=== PATIENT | male | born 1970 | race African-American/Black ===

== ENCOUNTER 2017-09-25 10:03 | Emergency (ER) | payer MEDICAID ==
[~2017-09-25] VITALS: Ht 193 cm; Wt 100.0 kg
[2017-09-25 10:06] VITALS: BP 120/74
[2017-09-25] MEDS ORDERED: LIDOCAINE-MPF 1%, 5ML ONE (10:56)
[2017-09-25] MEDS ORDERED: LIDOCAINE-MPF 1%, 5ML INFIL ONE (11:00)
== END 2017-09-25 11:21 | disposition home or self-care (01) ==
LOC: ED 11:15
DX: L02.31 Cutaneous abscess of buttock (principal)
CPT/HCPCS: 10060; 99283

== ENCOUNTER 2017-09-27 09:36 | Emergency (ER) | payer MEDICAID ==
[~2017-09-27] VITALS: Ht 193 cm; Wt 102.1 kg
[2017-09-27 09:38] VITALS: BP 130/80
[2017-09-27] MEDS ORDERED: BACITRACIN ZINC OINT 500U/GM, 0.9 GM ONE (11:16)
== END 2017-09-27 11:11 | disposition home or self-care (01) ==
LOC: ED 11:06
DX: L02.31 Cutaneous abscess of buttock (principal); F17.200 Nicotine dependence, unspecified, uncomplicated
CPT/HCPCS: 99283

== ENCOUNTER 2017-09-29 08:16 | Emergency (ER) | payer MEDICAID ==
[~2017-09-29] VITALS: Ht 193 cm; Wt 101.3 kg
[2017-09-29 08:19] VITALS: BP 107/71
[2017-09-29] MEDS ORDERED: BACITRACIN ZINC OINT 500U/GM, 0.9 GM ONE (10:14)
== END 2017-09-29 10:29 | disposition home or self-care (01) ==
LOC: ED 10:23
DX: L02.31 Cutaneous abscess of buttock (principal); F17.200 Nicotine dependence, unspecified, uncomplicated
CPT/HCPCS: 99283

== ENCOUNTER 2017-10-02 09:03 | Emergency (ER) | payer MEDICAID ==
[~2017-10-02] VITALS: Ht 193 cm; Wt 101.3 kg
[2017-10-02 09:03] VITALS: BP 115/78
== END 2017-10-02 10:29 | disposition home or self-care (01) ==
LOC: ED 09:19
DX: L02.416 Cutaneous abscess of left lower limb (principal)
CPT/HCPCS: 99281

== ENCOUNTER 2018-04-19 12:10 | Emergency (ER) | payer MEDICAID ==
[~2018-04-19] VITALS: Ht 193 cm; Wt 100.0 kg
[2018-04-19 12:20] VITALS: BP 122/79
[2018-04-19] MEDS ORDERED: MECLIZINE CHEWABLE 25 MG TAB ONE (12:55)
[2018-04-19] MEDS ORDERED: MECLIZINE CHEWABLE 25 MG TAB PO ONE (13:00)
[2018-04-19 13:16] LABS: BASOPHILS # (AUTO) 0.01 x10^3/uL (0-0.1); BASOPHILS % (AUTO) 0 % (0-1); EOSINOPHILS # (AUTO) 0.02 x10^3/uL (0-0.4); EOSINOPHILS % (AUTO) 0 % (1-7); LYMPHOCYTES # (AUTO) 0.85 x10^3/uL (1-3.4); LYMPHOCYTES % (AUTO) 11 % (22-44); MD NO; MEAN CORPUSCULAR HEMOGLOBIN 31.2 pg (27.5-34.5); MEAN CORPUSCULAR HGB CONC 33.1 g/dL (33.2-36.2); MEAN CORPUSCULAR VOLUME 94.3 fL (81-97); MEAN PLATELET VOLUME 9.9 fL (7.4-10.4); MONOCYTES # (AUTO) 0.19 x10^3/uL (0.2-0.8); MONOCYTES % (AUTO) 3 % (2-9); NEUTROPHILS # (AUTO) 6.42 x10^3/uL (1.8-6.8); NEUTROPHILS % (AUTO) 86 % (42-75); PLATELET COUNT 177 x10^3/uL (130-400); RED BLOOD COUNT 4.86 x10^6/uL (4.38-5.82); RED CELL DISTRIBUTION WIDTH 14.2 % (9.4-14.8)
[2018-04-19 13:29] LABS: ALANINE AMINOTRANSFERASE 50 U/L (12-78); ALBUMIN 4.2 g/dL (3.4-5.0); ANION GAP 6 mmol/L (5-15); CALCIUM 9.2 mg/dL (8.5-10.1); CHLORIDE 107 mmol/L (98-107); CREATININE 0.93 mg/dL (0.7-1.3)
[2018-04-19 13:31] LABS: ALKALINE PHOSPHATASE 62 U/L (45-117); BILIRUBIN,TOTAL 0.5 mg/dL (0.2-1.0); TOTAL PROTEIN 7.7 g/dL (6.4-8.2)
== END 2018-04-19 14:18 | disposition home or self-care (01) ==
LOC: ED 14:15
DX: H81.10 Benign paroxysmal vertigo, unspecified ear (principal); Z87.891 Personal history of nicotine dependence
CPT/HCPCS: 36415; 80053; 85025; 93005; 99284

== ENCOUNTER 2019-02-10 09:40 | Inpatient (IN) | payer MEDICARE, MEDICAID ==
[~2019-02-10] VITALS: Ht 193 cm; Wt 90.8 kg
[~2019-02-10 09:40] MED LIST: ATOR40TA78 PO; BACITRACIN 50,000 UNIT ONE; BUPIVACAINE/PF 0.5% ONE; EPINEPHRINE 1 MG/ML, 1ML ONE; KRIL1CAP7 PO; OMEG1CAP34 PO; THROMBIN 5,000 UNIT VIAL TP ONE; TRANEXAMIC ACID 100 MG/ML, 10ML ONE; VANCOMYCIN 1,000 MG ONE
[2019-02-10] MEDS ORDERED: VANCOMYCIN PMX 1GM/200ML 200 ML IV ONE (10:00)
[2019-02-10] MEDS ORDERED: LACTATED RINGERS 1,000 ML IV SCH (10:29)
[2019-02-10] MEDS ORDERED: MIDAZOLAM 1 MG/ML, 2ML ONE (12:30)
[2019-02-10] MEDS ORDERED: FENTANYL PF 250 MCG/5ML ONE ×4 (12:30→16:27)
[2019-02-10] MEDS ORDERED: PROPOFOL 50 ML ONE ×3 (12:31→17:16)
[2019-02-10] MEDS ORDERED: KETOROLAC 30 MG/1 ML ONE (13:16)
[2019-02-10] MEDS ORDERED: ONDANSETRON 2MG/ML, 2ML ONE ×3 (13:16→22:34)
[2019-02-10] MEDS ORDERED: DEXAMETHASONE 4 MG/ML, 1ML ONE ×2 (13:38→13:47)
[2019-02-10] MEDS ORDERED: CEFAZOLIN 1,000 MG ONE ×2 (13:40)
[2019-02-10] MEDS ORDERED: SUCCINYLCHOLINE 20 MG/ML, 10ML ONE (13:47)
[2019-02-10] MEDS ORDERED: ROCURONIUM 10MG/ML,5ML ONE (13:47)
[2019-02-10] MEDS ORDERED: BACITRACIN 50,000 UNIT ONE ×2 (15:54→18:24)
[2019-02-10] MEDS ORDERED: FENTANYL PF 100 MCG/2ML ONE ×2 (19:06→20:32)
[2019-02-10] MEDS ORDERED: LABETALOL 5MG/ML, 20ML IV PRN (20:30)
[2019-02-10] MEDS ORDERED: ACETAMINOPHEN 325 MG TABLET PO PRN (20:30)
[2019-02-10] MEDS ORDERED: ALBUTEROL SULFATE 2.5 MG/3 ML NPPB PRN (20:30)
[2019-02-10] MEDS ORDERED: PROMETHAZINE 12.5 MG SUPP PR PRN (20:30)
[2019-02-10] MEDS ORDERED: hydrALAzine 20 MG/ML, 1ML IV PRN (20:30)
[2019-02-10] MEDS ORDERED: EPHEDRINE 50 MG/ML, 1ML IVPush PRN (20:30)
[2019-02-10] MEDS ORDERED: ONDANSETRON 2MG/ML, 2ML IV PRN ×2 (20:30→22:30)
[2019-02-10] MEDS ORDERED: DIAZEPAM 5 MG/ML, 2ML IVPush PRN (20:30)
[2019-02-10] MEDS ORDERED: HALOPERIDOL 5 MG/ML IV PRN (20:30)
[2019-02-10] MEDS ORDERED: MIDAZOLAM 1 MG/ML, 2ML IV PRN (20:30)
[2019-02-10] MEDS ORDERED: ONDANSETRON ODT 8 MG PO PRN (20:30)
[2019-02-10] MEDS ORDERED: OXYcodone 5 MG/5 ML ORAL.SOL UDC PO PRN (20:30)
[2019-02-10] MEDS ORDERED: MEPERIDINE/PF 25MG/ML,1ML IVPush PRN (20:30)
[2019-02-10] MEDS ORDERED: PROMETHAZINE 25 MG/ML, 1ML IV PRN (20:30)
[2019-02-10] MEDS ORDERED: HYDROmorphone 2 MG/ML, 1ML ONE (20:32)
[2019-02-10] MEDS: FENTANYL PF 100 MCG/2ML IV PRN ×2 (20:33→20:58)
[2019-02-10] MEDS: HYDROmorphone 2 MG/ML, 1ML IVPush PRN ×2 (20:45→21:02)
[2019-02-10] MEDS ORDERED: PHARMACY MAY ADJ FOR RENAL FX MC PRN (22:00)
[2019-02-10] MEDS ORDERED: DIPHENHYDRAMINE 50 MG CAPSULE PO PRN (22:30)
[2019-02-10] MEDS ORDERED: LORazepam 1MG TABLET PO PRN (22:30)
[2019-02-10] MEDS ORDERED: PROMETHAZINE 25 MG/ML, 1ML IM PRN (22:30)
[2019-02-10] MEDS ORDERED: ACETAMINOPHEN 650 MG SUPP PR PRN ×2 (22:30→23:00)
[2019-02-10] MEDS ORDERED: DIPHENHYDRAMINE 50 MG/ML, 1ML IVPush PRN (22:30)
[2019-02-10] MEDS ORDERED: KETOROLAC 30 MG/1 ML IV ONE (22:30)
[2019-02-10] MEDS ORDERED: DIPHENHYDRAMINE 50 MG/ML, 1ML IM PRN (22:30)
[2019-02-10] MEDS ORDERED: [UNRECOGNIZED DRUG - REMARK] MC SCH (23:00)
[2019-02-10 23:03] VITALS: BP 148/87
[2019-02-10] MEDS: D5%-0.9% NACL+KCL 20MEQ 1,000 ML IV SCH (23:10)
[2019-02-10] MEDS: CEFAZOLIN PMX 2GM/50ML 50 ML IVPB SCH (23:10)
[2019-02-11] MEDS ORDERED: METHOCARBAMOL 1,000 MG in DEXTROSE 5% 100 ML IV ONE (02:30)
[2019-02-11 03:22] VITALS: BP 121/78
[2019-02-11 05:35] LABS: BASOPHILS # (AUTO) 0.02 x10^3/uL (0-0.1); BASOPHILS % (AUTO) 0 % (0-1); EOSINOPHILS % (AUTO) 0 % (1-7); LYMPHOCYTES # (AUTO) 0.74 x10^3/uL (1-3.4); LYMPHOCYTES % (AUTO) 7 % (22-44); MD NO; MEAN CORPUSCULAR HEMOGLOBIN 32.2 pg (27.5-34.5); MEAN CORPUSCULAR VOLUME 97.6 fL (81-97); MEAN PLATELET VOLUME 10.2 fL (7.4-10.4); MONOCYTES # (AUTO) 0.57 x10^3/uL (0.2-0.8); MONOCYTES % (AUTO) 6 % (2-9); NEUTROPHILS # (AUTO) 8.98 x10^3/uL (1.8-6.8); NEUTROPHILS % (AUTO) 87 % (42-75); PLATELET COUNT 142 x10^3/uL (130-400); RED BLOOD COUNT 3.86 x10^6/uL (4.38-5.82); RED CELL DISTRIBUTION WIDTH 14.2 % (9.4-14.8)
[2019-02-11] MEDS ORDERED: KETOROLAC 30 MG/1 ML IV PRN (06:00)
[2019-02-11] MEDS: CEFAZOLIN PMX 2GM/50ML 50 ML IVPB SCH (06:18)
[2019-02-11] MEDS ORDERED: morphine SULFATE 10 MG/ML, 1ML IVPush PRN (08:00)
[2019-02-11 08:16] VITALS: BP 103/64
[2019-02-11] MEDS: SENNA/DOCUSATE TABLET PO SCH (09:46)
[2019-02-11] MEDS: OMEGA-3/FISH OIL CAPSULE PO SCH (09:46)
[2019-02-11 13:01] VITALS: BP 142/92
[2019-02-11] MEDS: METHOCARBAMOL 750 MG in DEXTROSE 5% 100 ML IV SCH ×2 (13:43→22:11)
[2019-02-11] MEDS: D5%-0.9% NACL+KCL 20MEQ 1,000 ML IV SCH (13:43)
[2019-02-11 18:41] VITALS: BP 122/71
[2019-02-11] MEDS: ZOLPIDEM 5MG TABLET PO PRN (20:24)
[2019-02-11] MEDS: DEXAMETHASONE 4 MG/ML, 1ML IV PRN (20:26)
[2019-02-11] MEDS: ATORVASTATIN 40 MG TABLET PO SCH (20:26)
[2019-02-12 02:22] VITALS: BP 100/64
[2019-02-12 05:24] LABS: BASOPHILS # (AUTO) 0.03 x10^3/uL (0-0.1); BASOPHILS % (AUTO) 0 % (0-1); EOSINOPHILS % (AUTO) 0 % (1-7); LYMPHOCYTES # (AUTO) 0.62 x10^3/uL (1-3.4); LYMPHOCYTES % (AUTO) 6 % (22-44); MD NO; MEAN CORPUSCULAR HEMOGLOBIN 32.6 pg (27.5-34.5); MEAN CORPUSCULAR HGB CONC 33.4 g/dL (33.2-36.2); MEAN CORPUSCULAR VOLUME 97.6 fL (81-97); MEAN PLATELET VOLUME 9.6 fL (7.4-10.4); MONOCYTES # (AUTO) 0.56 x10^3/uL (0.2-0.8); MONOCYTES % (AUTO) 5 % (2-9); NEUTROPHILS # (AUTO) 9.32 x10^3/uL (1.8-6.8); NEUTROPHILS % (AUTO) 89 % (42-75); PLATELET COUNT 131 x10^3/uL (130-400); RED BLOOD COUNT 3.58 x10^6/uL (4.38-5.82); RED CELL DISTRIBUTION WIDTH 14.5 % (9.4-14.8)
[2019-02-12] MEDS: METHOCARBAMOL 750 MG in DEXTROSE 5% 100 ML IV SCH (05:55)
[2019-02-12] MEDS: SENNA/DOCUSATE TABLET PO SCH (08:00)
[2019-02-12] MEDS: OMEGA-3/FISH OIL CAPSULE PO SCH (08:00)
[2019-02-12 08:38] VITALS: BP 130/78
[2019-02-12] MEDS: D5%-0.9% NACL+KCL 20MEQ 1,000 ML IV SCH ×3 (10:45→20:00)
[2019-02-12] MEDS: OXYcodone IR 5MG TABLET PO PRN ×3 (12:40→21:26)
[2019-02-12] MEDS: DEXAMETHASONE 4 MG/ML, 1ML IV PRN (12:41)
[2019-02-12 13:47] VITALS: BP 115/62
[2019-02-12] MEDS: MAGNESIUM HYDROXIDE 8%, 30ML UDC PO PRN (17:46)
[2019-02-12 18:39] VITALS: BP 166/81
[2019-02-12] MEDS: ATORVASTATIN 40 MG TABLET PO SCH (21:00)
[2019-02-12] MEDS: ZOLPIDEM 5MG TABLET PO PRN (21:26)
[2019-02-13 00:06] VITALS: BP 108/65
[2019-02-13] MEDS: OXYcodone IR 5MG TABLET PO PRN ×4 (04:45→15:09)
[2019-02-13 04:57] LABS: BASOPHILS # (AUTO) 0.05 x10^3/uL (0-0.1); BASOPHILS % (AUTO) 0 % (0-1); EOSINOPHILS % (AUTO) 0 % (1-7); LYMPHOCYTES # (AUTO) 1.28 x10^3/uL (1-3.4); LYMPHOCYTES % (AUTO) 12 % (22-44); MD NO; MEAN CORPUSCULAR HEMOGLOBIN 32.4 pg (27.5-34.5); MEAN CORPUSCULAR HGB CONC 33.3 g/dL (33.2-36.2); MEAN CORPUSCULAR VOLUME 97.1 fL (81-97); MEAN PLATELET VOLUME 9.5 fL (7.4-10.4); MONOCYTES # (AUTO) 0.74 x10^3/uL (0.2-0.8); MONOCYTES % (AUTO) 7 % (2-9); NEUTROPHILS # (AUTO) 8.91 x10^3/uL (1.8-6.8); NEUTROPHILS % (AUTO) 81 % (42-75); PLATELET COUNT 123 x10^3/uL (130-400); RED CELL DISTRIBUTION WIDTH 14.5 % (9.4-14.8)
[2019-02-13] MEDS: D5%-0.9% NACL+KCL 20MEQ 1,000 ML IV SCH ×3 (06:00→21:48)
[2019-02-13 06:37] VITALS: BP 116/72
[2019-02-13] MEDS: SENNA/DOCUSATE TABLET PO SCH (07:57)
[2019-02-13] MEDS: OMEGA-3/FISH OIL CAPSULE PO SCH (07:57)
[2019-02-13] MEDS: METHOCARBAMOL 750 MG TABLET PO SCH ×2 (11:13→18:30)
[2019-02-13 12:42] VITALS: BP 140/82
[2019-02-13] MEDS: MAGNESIUM HYDROXIDE 8%, 30ML UDC PO PRN (13:33)
[2019-02-13] MEDS: BISACODYL 10 MG SUPP PR PRN (15:08)
[2019-02-13] MEDS: POLYETHYLENE GLYCOL 17 GM PACKET PO PRN (19:14)
[2019-02-13] MEDS: ACETAMINOPHEN 500 MG TABLET PO PRN (19:14)
[2019-02-13 19:22] VITALS: BP 135/77
[2019-02-13] MEDS: ATORVASTATIN 40 MG TABLET PO SCH (21:00)
[2019-02-13] MEDS: ZOLPIDEM 5MG TABLET PO PRN (21:48)
[2019-02-14] MEDS: OXYcodone IR 5MG TABLET PO PRN ×3 (00:40→14:55)
[2019-02-14 01:59] VITALS: BP 117/74
[2019-02-14] MEDS: METHOCARBAMOL 750 MG TABLET PO SCH ×3 (02:30→16:33)
[2019-02-14] MEDS: ACETAMINOPHEN 500 MG TABLET PO PRN ×2 (04:55→14:54)
[2019-02-14 05:23] LABS: MEAN CORPUSCULAR HGB CONC 33.5 g/dL (33.2-36.2); MEAN CORPUSCULAR VOLUME 95.6 fL (81-97); MEAN PLATELET VOLUME 9.2 fL (7.4-10.4); PLATELET COUNT 133 x10^3/uL (130-400); RED BLOOD COUNT 3.35 x10^6/uL (4.38-5.82); RED CELL DISTRIBUTION WIDTH 14.4 % (9.4-14.8)
[2019-02-14 05:54] LABS: BASOPHILS # (AUTO) 0.04 x10^3/uL (0-0.1); BASOPHILS % (AUTO) 1 % (0-1); EOSINOPHILS # (AUTO) 0.04 x10^3/uL (0-0.4); EOSINOPHILS % (AUTO) 1 % (1-7); LYMPHOCYTES # (AUTO) 2.02 x10^3/uL (1-3.4); LYMPHOCYTES % (AUTO) 29 % (22-44); MD SCAN; MONOCYTES # (AUTO) 0.55 x10^3/uL (0.2-0.8); MONOCYTES % (AUTO) 8 % (2-9); NEUTROPHILS # (AUTO) 4.27 x10^3/uL (1.8-6.8); NEUTROPHILS % (AUTO) 62 % (42-75)
[2019-02-14 08:38] VITALS: BP 119/72
[2019-02-14] MEDS ORDERED: OXYC5CAP2 PO (08:40)
[2019-02-14] MEDS ORDERED: DIAZ5TAB PO (08:40)
[2019-02-14] MEDS ORDERED: CEPH-368 PO (08:41)
[2019-02-14] MEDS: SENNA/DOCUSATE TABLET PO SCH (09:02)
[2019-02-14] MEDS: OMEGA-3/FISH OIL CAPSULE PO SCH (09:02)
[2019-02-14] MEDS: D5%-0.9% NACL+KCL 20MEQ 1,000 ML IV SCH ×2 (12:00→22:00)
[2019-02-14 12:38] VITALS: BP 136/87
[2019-02-14] MEDS: DEXAMETHASONE 4 MG/ML, 1ML IV PRN (14:54)
[2019-02-14] MEDS: DEXAMETHASONE 4 MG/ML, 1ML IV SCH ×2 (16:00→22:01)
[2019-02-14] MEDS: ACETAMINOPHEN 500 MG TABLET PO SCH ×2 (16:00→22:01)
[2019-02-14] MEDS: IBUPROFEN 800 MG TABLET PO SCH ×2 (16:33→20:38)
[2019-02-14 18:56] VITALS: BP 122/77
[2019-02-14] MEDS: ATORVASTATIN 40 MG TABLET PO SCH (20:38)
[2019-02-14] MEDS: ZOLPIDEM 5MG TABLET PO PRN (22:15)
[2019-02-15 02:07] VITALS: BP 133/75
[2019-02-15] MEDS: METHOCARBAMOL 750 MG TABLET PO SCH ×3 (02:11→18:45)
[2019-02-15] MEDS: ACETAMINOPHEN 500 MG TABLET PO SCH ×4 (04:19→22:06)
[2019-02-15] MEDS: DEXAMETHASONE 4 MG/ML, 1ML IV SCH ×4 (04:20→22:05)
[2019-02-15 05:44] LABS: BASOPHILS % (AUTO) 0 % (0-1); EOSINOPHILS % (AUTO) 1 % (1-7); LYMPHOCYTES # (AUTO) 0.68 x10^3/uL (1-3.4); LYMPHOCYTES % (AUTO) 7 % (22-44); MD NO; MEAN CORPUSCULAR HEMOGLOBIN 32.5 pg (27.5-34.5); MEAN CORPUSCULAR HGB CONC 33.1 g/dL (33.2-36.2); MEAN CORPUSCULAR VOLUME 98.1 fL (81-97); MEAN PLATELET VOLUME 10.1 fL (7.4-10.4); MONOCYTES # (AUTO) 0.09 x10^3/uL (0.2-0.8); MONOCYTES % (AUTO) 1 % (2-9); NEUTROPHILS # (AUTO) 9.26 x10^3/uL (1.8-6.8); NEUTROPHILS % (AUTO) 91 % (42-75); PLATELET COUNT 174 x10^3/uL (130-400); RED BLOOD COUNT 3.51 x10^6/uL (4.38-5.82); RED CELL DISTRIBUTION WIDTH 14.4 % (9.4-14.8)
[2019-02-15 07:15] VITALS: BP 137/79
[2019-02-15] MEDS: D5%-0.9% NACL+KCL 20MEQ 1,000 ML IV SCH ×2 (08:00→16:37)
[2019-02-15] MEDS: OXYcodone IR 5MG TABLET PO PRN ×2 (08:29→14:11)
[2019-02-15] MEDS: SENNA/DOCUSATE TABLET PO SCH (08:29)
[2019-02-15] MEDS: IBUPROFEN 800 MG TABLET PO SCH ×3 (08:29→22:05)
[2019-02-15] MEDS: OMEGA-3/FISH OIL CAPSULE PO SCH (08:29)
[2019-02-15] MEDS: CEFAZOLIN 2,000 MG in SODIUM CHLORIDE 0.9% 50 ML IV SCH ×2 (11:22→18:58)
[2019-02-15 13:26] VITALS: BP 142/89
[2019-02-15 21:00] VITALS: BP 123/69
[2019-02-15] MEDS: ZOLPIDEM 5MG TABLET PO PRN (22:06)
[2019-02-15] MEDS: ATORVASTATIN 40 MG TABLET PO SCH (22:06)
[2019-02-16] MEDS: METHOCARBAMOL 750 MG TABLET PO SCH ×3 (02:30→17:55)
[2019-02-16 02:45] VITALS: BP 107/61
[2019-02-16] MEDS: D5%-0.9% NACL+KCL 20MEQ 1,000 ML IV SCH ×2 (04:00→14:00)
[2019-02-16] MEDS: CEFAZOLIN 2,000 MG in SODIUM CHLORIDE 0.9% 50 ML IV SCH ×3 (04:13→19:45)
[2019-02-16] MEDS: DEXAMETHASONE 4 MG/ML, 1ML IV SCH ×4 (04:20→21:44)
[2019-02-16] MEDS: ACETAMINOPHEN 500 MG TABLET PO SCH ×4 (04:20→21:44)
[2019-02-16] MEDS: OXYcodone IR 5MG TABLET PO PRN (04:21)
[2019-02-16 04:44] LABS: MEAN CORPUSCULAR HEMOGLOBIN 32.2 pg (27.5-34.5); MEAN CORPUSCULAR VOLUME 97.4 fL (81-97); MEAN PLATELET VOLUME 9.3 fL (7.4-10.4); PLATELET COUNT 199 x10^3/uL (130-400); RED BLOOD COUNT 3.42 x10^6/uL (4.38-5.82); RED CELL DISTRIBUTION WIDTH 14.8 % (9.4-14.8)
[2019-02-16 05:02] LABS: BASOPHILS % (AUTO) 0 % (0-1); EOSINOPHILS # (AUTO) 0.31 x10^3/uL (0-0.4); EOSINOPHILS % (AUTO) 2 % (1-7); LYMPHOCYTES # (AUTO) 0.59 x10^3/uL (1-3.4); LYMPHOCYTES % (AUTO) 3 % (22-44); MD SCAN; MONOCYTES # (AUTO) 0.62 x10^3/uL (0.2-0.8); MONOCYTES % (AUTO) 3 % (2-9); NEUTROPHILS # (AUTO) 16.83 x10^3/uL (1.8-6.8); NEUTROPHILS % (AUTO) 92 % (42-75)
[2019-02-16 07:25] VITALS: BP 123/81
[2019-02-16] MEDS: POLYETHYLENE GLYCOL 17 GM PACKET PO PRN (09:13)
[2019-02-16] MEDS: OMEGA-3/FISH OIL CAPSULE PO SCH (09:13)
[2019-02-16] MEDS: IBUPROFEN 800 MG TABLET PO SCH ×3 (09:13→21:44)
[2019-02-16] MEDS: SENNA/DOCUSATE TABLET PO SCH (09:13)
[2019-02-16 13:15] VITALS: BP 155/77
[2019-02-16 19:00] VITALS: BP 128/79
[2019-02-16] MEDS: ATORVASTATIN 40 MG TABLET PO SCH (21:44)
[2019-02-16] MEDS: ZOLPIDEM 5MG TABLET PO PRN (21:46)
[2019-02-17] MEDS: METHOCARBAMOL 750 MG TABLET PO SCH ×3 (02:17→18:06)
[2019-02-17 03:15] VITALS: BP 124/55
[2019-02-17] MEDS: ACETAMINOPHEN 500 MG TABLET PO SCH ×4 (04:00→21:33)
[2019-02-17] MEDS: DEXAMETHASONE 4 MG/ML, 1ML IV SCH ×4 (04:25→21:32)
[2019-02-17] MEDS: CEFAZOLIN 2,000 MG in SODIUM CHLORIDE 0.9% 50 ML IV SCH ×3 (04:25→18:44)
[2019-02-17 05:11] LABS: MEAN CORPUSCULAR HEMOGLOBIN 31.8 pg (27.5-34.5); MEAN CORPUSCULAR VOLUME 96.3 fL (81-97); MEAN PLATELET VOLUME 9.2 fL (7.4-10.4); PLATELET COUNT 217 x10^3/uL (130-400); RED BLOOD COUNT 3.48 x10^6/uL (4.38-5.82)
[2019-02-17 05:38] LABS: BASOPHILS % (AUTO) 0 % (0-1); EOSINOPHILS % (AUTO) 0 % (1-7); LYMPHOCYTES # (AUTO) 0.98 x10^3/uL (1-3.4); LYMPHOCYTES % (AUTO) 5 % (22-44); MD SCAN; MONOCYTES # (AUTO) 0.69 x10^3/uL (0.2-0.8); MONOCYTES % (AUTO) 4 % (2-9); NEUTROPHILS # (AUTO) 17.03 x10^3/uL (1.8-6.8); NEUTROPHILS % (AUTO) 91 % (42-75)
[2019-02-17 07:31] VITALS: BP 138/67
[2019-02-17] MEDS: SENNA/DOCUSATE TABLET PO SCH (09:03)
[2019-02-17] MEDS: OMEGA-3/FISH OIL CAPSULE PO SCH (09:03)
[2019-02-17] MEDS: D5%-0.9% NACL+KCL 20MEQ 1,000 ML IV SCH ×3 (09:03→19:58)
[2019-02-17] MEDS: IBUPROFEN 800 MG TABLET PO SCH ×3 (09:03→21:00)
[2019-02-17] MEDS: POLYETHYLENE GLYCOL 17 GM PACKET PO PRN (09:04)
[2019-02-17 14:41] VITALS: BP 136/87
[2019-02-17] MEDS: MAGNESIUM HYDROXIDE 8%, 30ML UDC PO PRN (16:29)
[2019-02-17 19:16] VITALS: BP 123/69
[2019-02-17] MEDS: ATORVASTATIN 40 MG TABLET PO SCH (21:32)
[2019-02-17] MEDS: ZOLPIDEM 5MG TABLET PO PRN (23:26)
[2019-02-18 02:23] VITALS: BP 117/67
[2019-02-18] MEDS: CEFAZOLIN 2,000 MG in SODIUM CHLORIDE 0.9% 50 ML IV SCH ×2 (03:07→11:40)
[2019-02-18] MEDS: METHOCARBAMOL 750 MG TABLET PO SCH ×3 (03:07→18:02)
[2019-02-18] MEDS: ACETAMINOPHEN 500 MG TABLET PO SCH ×3 (04:00→15:39)
[2019-02-18] MEDS: DEXAMETHASONE 4 MG/ML, 1ML IV SCH ×3 (04:38→15:38)
[2019-02-18] MEDS: D5%-0.9% NACL+KCL 20MEQ 1,000 ML IV SCH ×2 (04:44→15:28)
[2019-02-18 04:55] LABS: MEAN CORPUSCULAR HEMOGLOBIN 32.6 pg (27.5-34.5); MEAN CORPUSCULAR HGB CONC 33.2 g/dL (33.2-36.2); MEAN PLATELET VOLUME 8.9 fL (7.4-10.4); PLATELET COUNT 245 x10^3/uL (130-400); RED CELL DISTRIBUTION WIDTH 14.7 % (9.4-14.8)
[2019-02-18 05:40] LABS: MD YES
[2019-02-18 05:42] LABS: LYMPHS% (MANUAL) 6 % (22-44); MONOS#(MANUAL) 1.66 x10^3/uL (0.3-2.7); MONOS% (MANUAL) 9 % (2-9); NRBC % (MANUAL) 1 % (0-1); SEG#(MANUAL) 15.64 x10^3/uL (1.8-6.8); SEGS% (MANUAL) 85 % (42-75)
[2019-02-18 05:43] LABS: <PLATELET ESTIMATE> ADEQUATE; <PLT MORPHOLOGY> NORMAL PLT MORPH; POLYCHROMASIA 1+
[2019-02-18 07:20] VITALS: BP 131/76
[2019-02-18 08:00] VITALS: BP 119/66
[2019-02-18] MEDS: SENNA/DOCUSATE TABLET PO SCH (09:23)
[2019-02-18] MEDS: OMEGA-3/FISH OIL CAPSULE PO SCH (09:23)
[2019-02-18] MEDS: IBUPROFEN 800 MG TABLET PO SCH ×2 (09:23→15:39)
[2019-02-18] MEDS: BISACODYL 10 MG SUPP PR PRN (09:23)
[2019-02-18 14:47] VITALS: BP 120/68
== END 2019-02-18 19:42 | DRG 460 ==
LOC: ORIP 09:40 → 4NE 21:45
PROVIDERS: ADMIT Orthopaedic Surgery Orthopaedic Surgery of the Spine; ATTEND Orthopaedic Surgery Orthopaedic Surgery of the Spine
PROC: 0SG0071 Fusion of Lumbar Vertebral Joint with Autologous Tissue Substitute, Posterior Approach, Posterior Column, Open Approach (ICD-10-PCS; 2019-02-10)
PROC: 0SG3071 Fusion of Lumbosacral Joint with Autologous Tissue Substitute, Posterior Approach, Posterior Column, Open Approach (ICD-10-PCS; 2019-02-10)
PROC: 00N Central Nervous System and Cranial Nerves, Release (ICD-10-PCS; 2019-02-10)
PROC: 01NB0ZZ Release Lumbar Nerve, Open Approach (ICD-10-PCS; 2019-02-10)
PROC: 01NR0ZZ Release Sacral Nerve, Open Approach (ICD-10-PCS; 2019-02-10)
PROC: 0QP00JZ Removal of Synthetic Substitute from Lumbar Vertebra, Open Approach (ICD-10-PCS; 2019-02-10)
PROC: 07DR0ZZ Extraction of Iliac Bone Marrow, Open Approach (ICD-10-PCS; 2019-02-10)
PROC: 4A11X4G Monitoring of Peripheral Nervous Electrical Activity, Intraoperative, External Approach (ICD-10-PCS; principal; 2019-02-10 12:00)
DX: M48.07 Spinal stenosis, lumbosacral region (principal); M54.17 Radiculopathy, lumbosacral region; M43.17 Spondylolisthesis, lumbosacral region; L91.0 Hypertrophic scar; G47.33 Obstructive sleep apnea (adult) (pediatric); E78.5 Hyperlipidemia, unspecified; Z87.820 Personal history of traumatic brain injury
CPT/HCPCS: 36415; 85025; 86850; 86900; C1713; G0378; J0171; J0690; J1100; J1170; J1885; J2250; J2270; J2405; J2550; J2704; J3010; J3370; C1760; C1762; C1763; C9362; J0330; J2800; J3480; J7120